=== PATIENT | male | born 1945 | race Caucasian/White ===

== ENCOUNTER 2025-01-14 06:49 | Day surgery (SDC) | payer MEDICARE ==
[2025-01-13 13:14] VITALS: BMI 25.8
[~2025-01-14 06:49] MED LIST: Fluorouracil 100 MG, Enoxaparin 25 MG, EPINEPHrine 0.3 MG in Ophthalmic Irrigation Solu... IRR SCH
[2025-01-14] MEDS ORDERED: Cyclopentolate 1% Opth Drop 2 ML BOT ONE (07:57)
[2025-01-14] MEDS ORDERED: Lidocaine 1% PF 5 ML VIAL ONE ×2 (08:07→08:45)
[2025-01-14] MEDS ORDERED: PROPOFOL 200 MG/20 ML VIAL ONE (08:45)
[2025-01-14] MEDS ORDERED: Enoxaparin 30 MG (0.3 mL) SYRINGE ONE (08:45)
[2025-01-14] MEDS ORDERED: CEFAZOLIN 1 GM VIAL ONE (08:45)
[2025-01-14] MEDS ORDERED: Lidocaine 4% PF 5 ML AMP ONE (08:45)
== END 2025-01-14 10:30 | disposition home or self-care (01) ==
LOC: SDC 06:49
PROVIDERS: ATTEND Ophthalmology Retina Specialist
PROC: 08B53ZZ Excision of Left Vitreous, Percutaneous Approach (ICD-10-PCS; principal; 2025-01-14)
DX: H33.022 Retinal detachment with multiple breaks, left eye (principal)
CPT/HCPCS: 67025; 67108; J0166; J0690; J1650; J2003; J2704; J3010; J3301; J3490; J9190